=== PATIENT | female | born 1960 | race Caucasian/White ===

== ENCOUNTER 2020-11-23 19:31 | Emergency (ER) | payer SELFPAY ==
[~2020-11-23] VITALS: Ht 162.6 cm; Wt 64.0 kg
[2020-11-23 22:30] LABS: CLARITY URINE CLEAR (CLEAR); COLOR URINE DARK YELLOW (YELLOW); KETONES URINE 2+ (NEGATIVE); LEUKOCYTE ESTERASE URINE NEGATIVE (NEGATIVE); NITRITE URINE NEGATIVE (NEGATIVE); OCCULT BLOOD URINE NEGATIVE (NEGATIVE); PROTEIN URINE 1+ (NEGATIVE); SPECIFIC GRAVITY URINE 1.045 (1.005-1.030); UROBILINOGEN URINE 0.2 E.U./dL (0.2-1.0)
[2020-11-23] MEDS ORDERED: ONDANSETRON HCL 4MG/2ML INJ IV ONE (22:30)
[2020-11-23] MEDS ORDERED: MORPHINE SULFATE 4 MG/ML CPJ (NOT FOR IM USE) IV ONE (22:30)
[2020-11-23 22:31] LABS: BASOPHILS % 0.1 % (0.0-2.0); EOSINOPHILS % 0.5 % (0.0-5.0); HEMATOCRIT. 41.9 % (36.0-48.0); MEAN CORPUSCULAR HEMOGLOBIN 31.8 pg (28.0-32.0); MEAN CORPUSCULAR VOLUME 95.1 fL (81.0-99.0); MEAN PLATELET VOLUME 7.9 fl (7.4-10.4); MONOCYTES % 6.3 % (2.0-8.0); NEUTROPHILS % 84.1 % (40.0-76.0); PLATELET 367 x1000/uL (130-400); RED CELL DISTRIBUTION WIDTH 14.2 % (11.6-14.6)
[2020-11-23 22:35] LABS: CHLORIDE 108 mEq/L (98-107)
[2020-11-24] MEDS ORDERED: MORPHINE SULFATE 4 MG/ML CPJ (NOT FOR IM USE) IV SCH (00:30)
[2020-11-24 01:35] LABS: PROTHROMBIN TIME 10.5 sec (9.6-11.0)
[2020-11-24] MEDS ORDERED: IOHEXOL-300 100 ML BOTTLE ONE (02:54)
[2020-11-24] MEDS ORDERED: ONDA4TAB5 MT (03:34)
[2020-11-24 04:10] VITALS: BP 92/53
== END 2020-11-24 04:11 | disposition home or self-care (01) ==
LOC: ER 19:31
DX: R10.13 Epigastric pain (principal); R11.10 Vomiting, unspecified; R42 Dizziness and giddiness
CPT/HCPCS: 36415; 73560; 74177; 80053; 81003; 83690; 85025; 85610; 93005; 93971; 96374; 96375; 99285; J2270; J2405; Q9967